=== PATIENT | male | born 1935 | race Caucasian/White ===

== ENCOUNTER 2022-05-10 12:53 | Inpatient (IN) | payer OTHER ==
[~2022-05-10] VITALS: Ht 182.9 cm; Wt 92.5 kg
[2022-05-10 17:21] LABS: HEMOGLOBIN 15.6 gm/dl (14.0-17.5); RED BLOOD COUNT 4.99 M/UL (4.20-5.50); WHITE BLOOD COUNT 8.9 K/UL (4.5-11.0)
[2022-05-10 17:59] LABS: BUN/CREATININE RATIO 21 (0-10)
[2022-05-11 05:25] LABS: HEMOGLOBIN 14.8 gm/dl (14.0-17.5); RED BLOOD COUNT 4.78 M/UL (4.20-5.50)
[2022-05-11 05:42] LABS: BUN/CREATININE RATIO 20 (0-10)
[2022-05-11] MEDS ORDERED: ALPRAZOLAM1 MG PO (10:33)
[2022-05-11] MEDS ORDERED: HYDROCODON-ACE1 EAC6 PO (10:34)
[2022-05-11] MEDS ORDERED: LISINOPRIL5 MG PO (10:36)
[2022-05-11] MEDS ORDERED: FINASTERIDE5 MG PO (10:36)
[2022-05-11] MEDS ORDERED: FLOMAX 0.4 MG0.4 MG PO (10:37)
[2022-05-11] MEDS ORDERED: MULTIVITAMIN1 EACH PO (10:37)
--- NOTE | 2022-05-11 23:52 | NUR ---
APPROX 1924 [place] CALLED NOTIFYING RN ABOUT COMMENT THE PT MADE TO PT. PT MADE STATEMENT ABOUT " NOT WANTING TO LIVE ANYMORE AND THAT HIS WOULD BE BETTER OFF WITHOUT HIM" APPROX 1927 RN WENT AND SPOKE WITH PT ABOUT THESE STATEMENTS AND PT IS ALERT AND ORIENTED AT THIS TIME. WHEN ASKED PT ABOUT THE ABOVE STATEMENTS HE STATES HE DID STATE THEM AND THAT HIS OF 65 YEARS WOULD BE BETTER OFF WITHOUT HIM. WHEN ASK IF PT REALLY MEANT IT OR IF HE HAD A PLAN PT STATES " NO, ID BE TO SCARED TO DO ANYTHING LIKE THAT" SPENT APPROX ABOUT 20 MINS WITH PT. PT DOES HAVE SITTER AT THIS TIME. BED IN LOWEST POSITION CALL LIGHT WITHIN REACH. APPROX 1950 NOITIFIED MD OF INFORMATION ABOVE, NO ORDERS GIVEN.
[2022-05-12 07:02] LABS: HEMOGLOBIN 15.5 gm/dl (14.0-17.5); RED BLOOD COUNT 4.93 M/UL (4.20-5.50)
[2022-05-12 07:26] LABS: BUN/CREATININE RATIO 27 (0-10)
[2022-05-13 06:35] LABS: RED BLOOD COUNT 5.08 M/UL (4.20-5.50)
[2022-05-13 06:48] LABS: WHITE BLOOD COUNT 15.1 K/UL (4.5-11.0)
[2022-05-13 07:36] LABS: BUN/CREATININE RATIO 35 (0-10)
[2022-05-14 02:36] LABS: HEMOGLOBIN 15.3 gm/dl (14.0-17.5); RED BLOOD COUNT 4.93 M/UL (4.20-5.50); WHITE BLOOD COUNT 12.7 K/UL (4.5-11.0)
[2022-05-14 03:25] LABS: BUN/CREATININE RATIO 41 (0-10)
[2022-05-14] MEDS ORDERED: DEXAMETHASONE 44 MG PO (15:08)
[2022-05-14] MEDS ORDERED: LEVOFLOXACIN500 MG PO (15:08)
[2022-05-15 04:32] LABS: HEMOGLOBIN 15.6 gm/dl (14.0-17.5); RED BLOOD COUNT 5.02 M/UL (4.20-5.50); WHITE BLOOD COUNT 9.8 K/UL (4.5-11.0)
[2022-05-15 04:48] LABS: BUN/CREATININE RATIO 35 (0-10)
--- NOTE | 2022-05-15 10:52 | NUR ---
PATIENT'S OXYGEN REMOVED, OXYGEN SATURATION REMAINS 91% ON ROOM AIR. NO S/SX OF DISTRESS. TSLO BRACE IN PLACE. PATIENT VERBALIZES DECREASED PAIN AFTER APPLICATION.
--- NOTE | 2022-05-15 15:24 | NUR ---
PATIENT HAS STILL NOT VOIDED AFTER REMOVAL OF URINARY CATHETER. MD MADE AWARE. NO NEW ORDERS NOTED AT THIS TIME.
[2022-05-16 08:16] LABS: (LD) FRACTION 1 21 % (17-32); (LD) FRACTION 2 34 % (25-40); (LD) FRACTION 3 24 % (17-27); (LD) FRACTION 4 10 % (5-13); (LD) FRACTION 5 11 % (4-20); LDH 273 IU/L (121-224)
[2022-05-16 08:57] LABS: HEMOGLOBIN 16.8 gm/dl (14.0-17.5); RED BLOOD COUNT 5.36 M/UL (4.20-5.50)
[2022-05-16 09:02] LABS: WHITE BLOOD COUNT 16.2 K/UL (4.5-11.0)
[2022-05-16 09:20] LABS: BUN/CREATININE RATIO 46 (0-10)
[2022-05-17 08:28] LABS: HEMOGLOBIN 15.1 gm/dl (14.0-17.5); RED BLOOD COUNT 5.06 M/UL (4.20-5.50); WHITE BLOOD COUNT 13.5 K/UL (4.5-11.0)
[2022-05-17 09:28] LABS: BUN/CREATININE RATIO 48 (0-10)
[2022-05-18 03:01] LABS: HEMOGLOBIN 15.1 gm/dl (14.0-17.5); RED BLOOD COUNT 4.88 M/UL (4.20-5.50); WHITE BLOOD COUNT 13.7 K/UL (4.5-11.0)
[2022-05-18 03:29] LABS: BUN/CREATININE RATIO 44 (0-10)
[2022-05-19 07:48] LABS: HEMOGLOBIN 13.8 gm/dl (14.0-17.5); RED BLOOD COUNT 4.56 M/UL (4.20-5.50); WHITE BLOOD COUNT 12.5 K/UL (4.5-11.0)
[2022-05-19 14:34] LABS: BUN/CREATININE RATIO 31 (0-10)
[2022-05-20 05:06] LABS: HEMOGLOBIN 15.7 gm/dl (14.0-17.5); RED BLOOD COUNT 5.01 M/UL (4.20-5.50); WHITE BLOOD COUNT 12.1 K/UL (4.5-11.0)
[2022-05-20 05:39] LABS: BUN/CREATININE RATIO 32 (0-10)
[2022-05-21 04:46] LABS: BUN/CREATININE RATIO 31 (0-10)
[2022-05-22 03:38] LABS: WHITE BLOOD COUNT 14.9 K/UL (4.5-11.0)
[2022-05-22 03:44] LABS: HEMOGLOBIN 13.5 gm/dl (14.0-17.5); RED BLOOD COUNT 4.32 M/UL (4.20-5.50)
[2022-05-22 04:08] LABS: BUN/CREATININE RATIO 38 (0-10)
[2022-05-23 04:58] LABS: BUN/CREATININE RATIO 40 (0-10)
[2022-05-23 05:03] LABS: HEMOGLOBIN 14.1 gm/dl (14.0-17.5); RED BLOOD COUNT 4.46 M/UL (4.20-5.50)
[2022-05-23 06:04] LABS: WHITE BLOOD COUNT 21.1 K/UL (4.5-11.0)
--- NOTE | 2022-05-25 04:29 | NUR ---
05/25/2022 ON 05/25/2022 AT 0215 PATIENT WAS VERIFIED BY 2 NURSES OF EXPIRATION (JAMES ELLIOTT RN AND SATURNINO DAVIS RN). FAMILY WAS AT BEDSIDE AND NOTFIED OF EXPIRATOIN. DECALER AND NOCTURNALIST WAS NOTIFED AT 0219. NGUYEN WAS CALLED AT 0221 ([facility] ASSOCIATE DENA TEE, ). [facility] WAS CALLED AT 0250 AND TOLD THAT THE FAMILY WISHES FOR THE PATIENT TO BE CREMATED. THE PATIENT WAS CLEANED UP AROUND 0340 AND THE PATIENT HAD LEFT THE BUILDING AT 0342
== END 2022-05-25 02:19 | disposition expired | DRG 177 ==
LOC: ER1 12:53 → CDU 21:11 → M/S 21:11 → PROG CARE 05-13 12:25 → M/S 05-15 22:18 → PROG CARE 05-16 21:11
PROVIDERS: Internal Medicine; Physician Assistant; ADMIT Internal Medicine
PROC: 8E0ZXY6 Isolation (ICD-10-PCS; principal; 2022-05-10)
PROC: 3E0333Z Introduction of Anti-inflammatory into Peripheral Vein, Percutaneous Approach (ICD-10-PCS; 2022-05-10)
PROC: 3E03329 Introduction of Other Anti-infective into Peripheral Vein, Percutaneous Approach (ICD-10-PCS; 2022-05-10)
PROC: 0DH63UZ Insertion of Feeding Device into Stomach, Percutaneous Approach (ICD-10-PCS; 2022-05-17)
PROC: B24BZZZ Ultrasonography of Heart with Aorta (ICD-10-PCS; 2022-05-17)
PROC: 5A0945A Assistance with Respiratory Ventilation, 24-96 Consecutive Hours, High Flow/Velocity Cannula (ICD-10-PCS; 2022-05-22)
DX: U07.1 COVID-19 (principal); A41.9 Sepsis, unspecified organism; J12.82 Pneumonia due to coronavirus disease 2019; R65.20 Severe sepsis without septic shock; J80 Acute respiratory distress syndrome; G93.41 Metabolic encephalopathy; S32.050A Wedge compression fracture of fifth lumbar vertebra, initial encounter for closed fracture; S22.32XA Fracture of one rib, left side, initial encounter for closed fracture; K56.609 Unspecified intestinal obstruction, unspecified as to partial versus complete obstruction; J90 Pleural effusion, not elsewhere classified; K56.7 Ileus, unspecified; N40.1 Benign prostatic hyperplasia with lower urinary tract symptoms; R33.8 Other retention of urine; R04.0 Epistaxis; R13.10 Dysphagia, unspecified; I25.10 Atherosclerotic heart disease of native coronary artery without angina pectoris; I48.0 Paroxysmal atrial fibrillation; Z66 Do not resuscitate; I10 Essential (primary) hypertension; W01.0XXA Fall on same level from slipping, tripping and stumbling without subsequent striking against object, initial encounter; Z90.49 Acquired absence of other specified parts of digestive tract; Z82.49 Family history of ischemic heart disease and other diseases of the circulatory system; Z51.5 Encounter for palliative care
CPT/HCPCS: ECHO; 0240U; 36415; 36600; 70450; 71045; 71250; 71260; 72131; 72170; 74018; 76705; 80048; 80053; 80202; 81001; 82550; 82553; 82728; 82803; 83036; 83605; 83615; 83625; 83735; 83880; 84100; 84132; 84439; 84443; 84484; 85025; 85027; 85379; 86140; 87040; 87086; 92526; 92610; 93005; 93306; 94640; 94664; 94760; 96372; 96374; 97110; 97116; 97162; 97164; 97165; 97168; 97530; 99285; C9113; G0378; J0692; J1100; J1160; J1650; J1940; J1956; J2060; J2248; J2270; J2405; J3370; J3486; J7070; Q9967